=== PATIENT | female | born 1990 | race Caucasian/White ===

== ENCOUNTER 2016-12-31 14:00 | Emergency (ER) | payer OTHER, MEDICAID ==
[~2016-12-31] VITALS: Ht 165.1 cm; Wt 55.0 kg
[~2016-12-31 14:00] MED LIST: Z.0.NO CURRENT MEDS
[2016-12-31 14:04] VITALS: BP 114/74; PULSE 75; RESP 16; TEMP 98.3; O2SAT 99
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
== END 2016-12-31 15:32 | disposition home or self-care (01) ==
LOC: PHEFT 14:00
DX: S60.032A Contusion of left middle finger without damage to nail, initial encounter (principal); V89.2XXA Person injured in unspecified motor-vehicle accident, traffic, initial encounter; W22.10XA Striking against or struck by unspecified automobile airbag, initial encounter
CPT/HCPCS: 73130; 99284